=== PATIENT | male | born 1955 | race Caucasian/White ===

== ENCOUNTER 2022-03-08 05:50 | Day surgery (SDC) | payer MEDICAID ==
[2022-02-25 14:29] LABS: BASOPHILS # (AUTO) 0.1 X10'3 (0-0.2); EOSINOPHILS # (AUTO) 0.3 X10'3 (0-0.9); EOSINOPHILS % (AUTO) 4.3 % (0-6); LYMPHOCYTES # (AUTO) 1.8 X10'3 (1.1-4.8); LYMPHOCYTES % (AUTO) 24.8 % (21-51); MEAN CORPUSCULAR HEMOGLOBIN 31.8 PG (27.0-31.0); MEAN CORPUSCULAR HGB CONC 33.2 g/dL (33.0-36.5); MEAN CORPUSCULAR VOLUME 95.9 FL (78-98); MEAN PLATELET VOLUME 6.8 FL (7.4-10.4); MONOCYTES # (AUTO) 0.7 X10'3 (0-0.9); MONOCYTES % (AUTO) 9.9 % (2-12); NEUTROPHILS # (AUTO) 4.5 X10'3 (1.8-7.7); PRE OP HEMATOCRIT 45.3 % (42.0-52.0); PRE OP PLATELET COUNT 316 X10'3 (140-440); RED BLOOD COUNT 4.73 X10'6 (4.70-6.10); RED CELL DISTRIBUTION WIDTH 14.1 % (11.5-14.5)
[2022-02-25 14:40] LABS: ALBUMIN 3.7 G/DL (3.4-5.0); ALBUMIN/GLOBULIN RATIO 0.9 (1.1-1.5); ALKALINE PHOSPHATASE 97 IU/L (46-116); BLOOD UREA NITROGEN 15 MG/DL (7-18); BUN/CREATININE RATIO 9.5 (5.4-32.0); CALCIUM 8.7 MG/DL (8.5-10.1); CHLORIDE 104 MMOL/L (99-107); CREATININE 1.58 MG/DL (0.60-1.10); PRE OP ALT 25 U/L (30-65); PRE OP ANION GAP 9 (8-16); PRE OP AST 28 U/L (10-37); PRE OP BILIRUB, TOTAL 0.3 MG/DL (0.0-1.0); PRE OP GLUCOSE 92 MG/DL (70-104); PRE OP POTASSIUM 4.1 MMOL/L (3.4-5.1); PRE OP SODIUM 139 MMOL/L (135-145); TOTAL CARBON DIOXIDE 26.2 MMOL/L (24-32); eGFR 44 ML/MIN
[~2022-03-08] VITALS: Ht 167.6 cm; Wt 67.8 kg
[2022-03-08] VITALS (29 sets, daily range): BP systolic 121–206; BP diastolic 77–161
[~2022-03-08 05:50] MED LIST: AMLO5TAB PO; LANS30CA37 PO; LOSA50TA3 PO; ceFAZolin inj. 2,000 MG in dextrose 5%-water 100 ML IV ONE; famotidine 20mg tablet PO ONE; ringers solution, lacted 1,000 ML IV SCH; tranexamic acid 650mg tablet PO ONE; vancomycin/NS 1 GM in NS 250 ML IV ONE
[2022-03-08] MEDS ORDERED: ROPIVAcaine 0.5% (5mg/ml) 30ml vial ONE ×2 (06:40→07:15)
[2022-03-08] MEDS ORDERED: ketorolac trometh. 30mg/ml inj. ONE (06:40)
[2022-03-08] MEDS ORDERED: fentaNYL/PF 50MCG/1 ML 2ML syringe ONE (07:15)
[2022-03-08] MEDS ORDERED: MIDAZolam 1 MG/ML 5ML VIAL ONE (07:15)
[2022-03-08] MEDS ORDERED: ondansetron/PF 4mg/2ml inj ONE (07:17)
[2022-03-08] MEDS ORDERED: dexamethasone sod phosphate 10mg/ml inj ONE (07:17)
[2022-03-08] MEDS ORDERED: sevoflurane 250ml liquid IH ONE (07:17)
[2022-03-08] MEDS ORDERED: propofol inj 20 ML IV ONE (07:23)
[2022-03-08] MEDS ORDERED: rocuronium 10mg/ml inj IV ONE (07:23)
[2022-03-08] MEDS ORDERED: LIDOcaine 1%/PF 5ML 10 MG/ML VIAL ONE (07:23)
--- NOTE | 2022-03-08 07:43 | NUR ---
[facility] NOTE: PT PROVIDED WITH A DVD THAT HE DID WATCH IT. MUPIROCIN OINTMENT ORDERED AND USED FOR 5 DAYS. PT HAS PALPABLE BILAT RADIAL PULSES. PT HAS BEEN EDUCATED ON USE OF IS AND DEMONSTRATED CORRECT USE OF IS.
[2022-03-08] MEDS ORDERED: ePHEDrine 50MG/ML INJ. ONE (08:04)
[2022-03-08] MEDS ORDERED: ROPIVAcaine 0.2% (10 MG/5 ML) BOLUS INJECTION INTERSCALE PRN (08:35)
[2022-03-08] MEDS ORDERED: morphine 4 MG/ML inj SYRINge IV PRN (08:35)
[2022-03-08] MEDS ORDERED: proCHLORperazine 10 MG/2 ml inj IV PRN (08:35)
[2022-03-08] MEDS ORDERED: morphine 2 MG/ML inj. syringe IV PRN (08:35)
[2022-03-08] MEDS ORDERED: ondansetron/PF 4mg/2ml inj IV PRN ×2 (08:35→09:40)
[2022-03-08] MEDS ORDERED: ringers solution, lacted 1,000 ML IV SCH (08:35)
[2022-03-08] MEDS ORDERED: meperidine/PF 25mg/ml syringe IV PRN ×3 (08:35)
[2022-03-08] MEDS ORDERED: ROPIVAcaine 0.2%/PF PUMP/bolus 545 ML INTERSCALE SCH (08:35)
--- NOTE | 2022-03-08 09:20 | NUR ---
PT ARRIVED TO VIA BED ACCOMPANIED BY DR KNOWLES-ANESTHESIA REPORT GIVEN, VSS, DENIES PAIN, PT RESPONDS TO VERBAL STIMULI, NEURO INTACT, ON-Q CATHETER PRESENT, LEFT ARM IN SLING WITH SHOULDER WRAP AND ICE, FINGERS PINK AND WARM, DRSG-CDI, NOTED TO HAVE ELEVATED BP-ANESTHESIA AWARE, JAYJAY HUGGER APPLIED AND WILL RE CHECK BEFORE TX PER DR REQUEST.
[2022-03-08] MEDS ORDERED: bisacodyl 10mg suppository rectal RC PRN (09:40)
[2022-03-08] MEDS ORDERED: potassium cl 20mEq in 1/2 NS 1,000 ML IV SCH (09:40)
[2022-03-08] MEDS ORDERED: magnesium hydroxide 30ml (MOM) UD suspension PO PRN (09:40)
[2022-03-08] MEDS ORDERED: naloxone 0.4 mg/ml inj IV PRN (09:40)
[2022-03-08] MEDS ORDERED: HYDROcodone/acetaminophen 10/325mg tab PO PRN ×2 (09:40)
[2022-03-08] MEDS ORDERED: HYDROmorphone inj. 0.5 MG/0.5 ML DISP.SYRIN IV PRN (09:40)
[2022-03-08] MEDS ORDERED: oxyCODONE IR 5mg (immed. release) tablet PO PRN ×2 (09:40)
[2022-03-08] MEDS ORDERED: HYDROmorphone 1 mg/ml syringe IV PRN (09:40)
[2022-03-08] MEDS ORDERED: acetaminophen 325mg tablet PO PRN (09:40)
[2022-03-08] MEDS ORDERED: diphenhydrAMINE 25mg capsule PO PRN ×2 (09:40)
[2022-03-08] MEDS ORDERED: labetalol 20mg/4ml (5mg/ml) syringe IV ONE (09:45)
--- NOTE | 2022-03-08 10:16 | NUR ---
PT UP AT BEDSIDE, TRYING TO VOID, STABLE AND ALERT, BP COMING DOWN-TRANDATE GIVEN, PT SET TO GO HOME TODAY-SPOKE WITH PT WILL TRY TO SEE PATIENT SOON
--- NOTE | 2022-03-08 10:45 | NUR ---
BP UP AND DOWN, PT ANXIOUS ABOUT NUMB LEFT HAND-TRYING TO REMIND/REASSURE NUMBNESS D/T BLOCK, PT REQUESTING SOMETHING FOR ANXIETY D/T NUMBNESS-SINCE BP STILL ELEVATED GIVEN 4MG MORPHINE TO HELP WITH PB AND NERVES. NO CHANGES IN ASSESSMENT-LEFT FINGERS-WARM, PINK, ABLE TO WIGGLE.
[2022-03-08] MEDS ORDERED: hydrALAZINE 20mg/ml inj. IV ONE ×2 (11:20→11:50)
[2022-03-08] MEDS ORDERED: acetaminophen 325mg tablet PO SCH (14:00)
--- NOTE | 2022-03-08 14:30 | NUR ---
PT DOING WELL, NO PAIN, ON-Q ATTACHED AND RUNNING AT 2ML/HR, PT IN TO SEE AND EDUCATED PT BEFORE GOING HOME, VSS-BLOOD PRESSURE MUCH BETTER, ATE LUNCH, DRSG-CDI, ICE PRESENT, FINGERS-PINK, WARM, ABLE TO MOVE, BLOCK STILL PRESENT, USING I.S. WELL, OK WITH DR AND ANESTHESIA TO GO HOME-SON CALLED.
--- NOTE | 2022-03-08 15:20 | NUR ---
PT DRESSED AND WAITING IN W/C FOR SON, D/C INSTRUCTIONS GIVEN TO PT-ALL QUESTIONS ANSWERED, PAPERWORK GIVEN TO REFER TO, VSS, DENIES PAIN, NO OTHER CHANGES IN ASSESSMENT.
[2022-03-08] MEDS ORDERED: ceFAZolin/D5W- 1GM premix 50 ML IV SCH (16:00)
[2022-03-08] MEDS ORDERED: vancomycin/NS 1 GM ADD-VANTAGE 250 ML IV SCH (20:00)
[2022-03-08] MEDS ORDERED: sennosides 8.6mg tablet PO SCH (21:00)
[2022-03-09] MEDS ORDERED: pantoprazole 40mg Tablet.DR PO SCH (07:30)
[2022-03-09] MEDS ORDERED: losartan 50mg tablet PO SCH (08:00)
[2022-03-09] MEDS ORDERED: amLODIPine 5mg tablet PO SCH (08:00)
[2022-03-09] MEDS ORDERED: aspirin 325mg tablet PO SCH (08:30)
[2022-03-10] MEDS ORDERED: acetaminophen 325mg tablet PO PRN (09:40)
== END 2022-03-08 15:20 | disposition home or self-care (01) ==
LOC: PAS 05:50 → EDSTATUS 09:30 → PAS 15:20
PROVIDERS: ATTEND Orthopaedic Surgery
DX: M19.012 Primary osteoarthritis, left shoulder (principal); M75.122 Complete rotator cuff tear or rupture of left shoulder, not specified as traumatic
CPT/HCPCS: 36415; 64415; 76942; 80053; 82948; 85025; 87081; 97110; 97116; 97161; 97530; C1776; J0360; J0690; J1100; J1885; J2250; J2270; J2405; J2704; J2795; J3010; J3370; J3490; J7030; J7060; J7120; Z7506; Z7508; Z7512; A4565; A4618; A7000

== ENCOUNTER 2023-12-07 09:22 | Outpatient (CLI) | payer MEDICARE, MEDICAID ==
[~2023-12-07] VITALS: Ht 167.6 cm; Wt 64.9 kg
[~2023-12-07 09:22] MED LIST changes: +LOSA-416 PO; -LOSA50TA3 PO; -ceFAZolin inj. 2,000 MG in dextrose 5%-water 100 ML IV ONE; -famotidine 20mg tablet PO ONE; -ringers solution, lacted 1,000 ML IV SCH; -tranexamic acid 650mg tablet PO ONE; -vancomycin/NS 1 GM in NS 250 ML IV ONE
[2023-12-07] MEDS: albuterol 2.5 MG/3 ML nebule NEB ONE (09:58)
[2023-12-07 09:59] VITALS: PULSE 104; RESP 18; O2SAT 98
[2023-12-07 10:26] VITALS: PULSE 107; RESP 17
== END 2023-12-07 23:59 | disposition home or self-care (01) ==
LOC: RT 09:22
PROVIDERS: ATTEND Physician Assistant Medical
DX: J44.9 Chronic obstructive pulmonary disease, unspecified (principal)
CPT/HCPCS: 94060; 94760